=== PATIENT | female | born 1985 | race Caucasian/White ===

== ENCOUNTER 2019-10-25 11:37 | Emergency (ER) | payer BC ==
[~2019-10-25] VITALS: Ht 172.7 cm; Wt 81.7 kg
[2019-10-25] MEDS ORDERED: NORCO 10-325 T1 EACH PO (12:53)
[2019-10-25 13:37] VITALS: BP 129/72
== END 2019-10-25 13:35 | disposition home or self-care (01) ==
LOC: ER 11:37
DX: S93.421A Sprain of deltoid ligament of right ankle, initial encounter (principal); Z98.51 Tubal ligation status; Z88.2 Allergy status to sulfonamides; W03.XXXA Other fall on same level due to collision with another person, initial encounter; Y93.89 Activity, other specified; Y92.89 Other specified places as the place of occurrence of the external cause; Y99.8 Other external cause status